=== PATIENT | male | born 1950 | race Caucasian/White ===

== ENCOUNTER → 2016-06-09 | Day surgery (SDC) | payer OTHER ==
[2016-06-06 08:48] VITALS: Ht 175.3 cm; Wt 84.1 kg
[~2016-06-09] VITALS: Ht 175.3 cm; Wt 84.1 kg
[~2016-06-09] MED LIST: AMIO200T4 PO; EpHEDrine SULFATE 50MG/5ML SYR ONE; HYDR25TA4 PO; LEVO112T4 PO; LIDOCAINE HCL 2% 2 ML VIAL (20MG/ML) ONE; LSNP/30 PO; METO100T7 PO; PROPOFOL IV EMULSION 10 MG/ML 20 ML VIAL IV ONE; SIMV20TA2 PO
[2016-06-09 13:30] VITALS: TEMP 37
--- NOTE | 2016-06-09 13:57 | Endo History and Physical ---
History & Physical Date of Service: Jun 09, 2016. Chief Complaint: history of polyps Referring Physician: no PCP assigned(patient unable to state) History of Present Illness For colonoscopy Past Surgical History Hx Cardiac Surgery: Yes (CARDIOVERSION AND CARDIAC ABLATION X2) Hx Internal Defibrillator: No Hx Pacemaker: No Hx Abdominal Surgery: No Hx of Implantable Prosthesis: No Hx Post-Op Nausea and Vomiting: No Hx Cancer Surgery: No Hx Thoracic Surgery: No Hx Orthopedic: No Hx Urinary Tract Surgery: No Family History None Social History Smoking Status: Never Smoker Hx Substance Use: No Hx Alcohol Use: No Allergies Coded Allergies: Tetanus Toxoid (Verified Allergy, Unknown, ALLERGY TO TETANUS HORSE SERUM , 06/09/16) Current Medications Reported Home Medications Medications Dose Route/Sig Max Daily Dose Days Date Category Cordarone (Amiodarone Hcl) 200 Mg Tab 0.5 Tab PO HS 06/06/16 Reported Hctz (Hydrochlorothiazide) 25 Mg Tab 25 Mg PO QAM 06/06/16 Reported Levothyroxine Sodium 112 Mcg Tab 1 Tab PO QAM 06/06/16 Reported Zestril (Lisinopril) 30 Mg Tab 30 Mg PO HS 06/06/16 Reported Toprol Xl (Metoprolol Succinate) 100 Mg Tab 0.5 Tab PO HS 10/29/11 Reported Zocor (Simvastatin) 20 Mg Tab 20 Mg PO HS 02/22/08 Reported Vital Signs Weight (Kilograms): 84.09 Height (Feet): 5 Height (Inches): 9 Date Time Temp Pulse Resp B/P Pulse Ox O2 Delivery O2 Flow Rate FiO2 06/09/16 13:30 37 68 20 127/79 96 Room Air Physical Exam General Appearance: WD/WN Respiratory/Chest: Respiratory effort: no dyspnea Cardiovascular: Heart Auscultation: RRR Abdomen: Inspection & Palpation: soft Assessment and Plan hx of polyps for colonoscopy
--- NOTE | 2016-06-09 14:15 | Discharge Instructions ---
Endoscopy Patient Instructions Date / Procedure(s) Performed Jun 09, 2016. Colonoscopy Allergy Information Coded Allergies: Tetanus Toxoid (Verified Allergy, Unknown, ALLERGY TO TETANUS HORSE SERUM , 06/09/16) Discharge Date / Findings Jun 09, 2016. polyps, hemorrhoids Medication Instructions Stopped Medication(s): stopped HCTZ,Zocor, and Levothyroxine on Thursday Restart Stopped Medication(s): resume meds Reported Home Medications Medications Dose Route/Sig Max Daily Dose Days Date Category Cordarone (Amiodarone Hcl) 200 Mg Tab 0.5 Tab PO HS 06/06/16 Reported Hctz (Hydrochlorothiazide) 25 Mg Tab 25 Mg PO QAM 06/06/16 Reported Levothyroxine Sodium 112 Mcg Tab 1 Tab PO QAM 06/06/16 Reported Zestril (Lisinopril) 30 Mg Tab 30 Mg PO HS 06/06/16 Reported Toprol Xl (Metoprolol Succinate) 100 Mg Tab 0.5 Tab PO HS 10/29/11 Reported Zocor (Simvastatin) 20 Mg Tab 20 Mg PO HS 02/22/08 Reported Provider Instructions Activity Restrictions - No exercising or heavy lifting for 24 hours. - Do not drink alcohol the day of the procedure. - Do not drive a car or operate machinery until the day after the procedure. - Do not make any important decisions or sign important papers in 24 hours after the procedure. Following Day: - Return to full activity which may include returning to work/school. Diet Start your diet with liquids and light foods (jello, soup, juice, toast). Then eat your usual diet if not nauseated. Treatment For Common After Affects For mild abdominal pain, bloating, or excessive gas: - Rest - Eat lightly - Lie on right side Follow-Up Information Follow-up with no PCP assigned(patient unable to state) as scheduled Anesthesia Information What You Should Know You have had a procedure that required some medicine to reduce anxiety and discomfort. This treatment is called moderate sedation. After receiving the treatment, you may be sleepy, but you will be able to breathe on your own. The effects of the treatment may last for several hours. Follow these instructions along with Activity/Diet recommendations noted above: * Do NOT do anything where dizziness or clumsiness would be dangerous. * Rest quietly at home today, then you can be up and about tomorrow. * Have a responsible person stay with you the rest of today. * You may have had an I.V. today. If so, you may take the dressing off later today. Recommendations Call your doctor if: * Trouble breathing * Continuous vomiting for more than 24 hours * Temperature above 101 degrees * Severe abdominal pain or bloating * Pain not relieved by pain medicine ordered * There is increased drainage or redness from any incision * A large amount of rectal bleeding greater than 2-3 tablespoons. (If you had a polyp/s removed or have hemorrhoids, a small amount of blood - from the rectum is to be expected.) * You have any unanswered questions or concerns. IN THE EVENT OF A SERIOUS EMERGENCY, GO TO THE NEAREST EMERGENCY ROOM Your discharge instructions were prepared by provider Lenny Echeverria. Patient Instructions Signature Page Jeremy Art Patient (or Guardian) Signature/Date: I have read and understand the instructions given to me by my caregivers. Caregiver/RN/Doctor Signature/Date: The above-named patient and/or guardian has received patient instructions on this date. + Original Patient Signature Page (only) stays with chart. Please make copy for patient.
--- NOTE | 2016-06-09 14:20 | GI REPORT ---
Procedure Date: 06/09/2016 1:20 PM Procedure: Colonoscopy Indications: Personal history of colonic polyps Medicines: Propofol total dose 230 mg IV, Lidocaine 40 mg IV, Ephedrine 10 mg IV Complications: No immediate complications. Estimated Blood Loss: Estimated blood loss was minimal. Procedure: Pre-Anesthesia Assessment: - Prior to the procedure, a History and Physical was performed, and patient medications, allergies and sensitivities were reviewed. The patient's tolerance of previous anesthesia was reviewed. - The risks and benefits of the procedure and the sedation options and risks were discussed with the patient. All questions were answered and informed consent was obtained. After I obtained informed consent, the scope was passed under direct vision. Throughout the procedure, the patient's blood pressure, pulse, and oxygen saturations were monitored continuously. The On-site loaner was introduced through the anus and advanced to the cecum, identified by appendiceal orifice and ileocecal valve. The colonoscopy was performed without difficulty. The patient tolerated the procedure well. The quality of the bowel preparation was excellent. Findings: Non-bleeding internal hemorrhoids were found during endoscopy. The hemorrhoids were mild. A 4 mm polyp was found in the descending colon. The polyp was sessile. The polyp was removed with a cold snare. Resection and retrieval were complete. Estimated blood loss was minimal. A 4 mm polyp was found in the rectum. The polyp was sessile. The polyp was removed with a cold snare. Resection and retrieval were complete. Estimated blood loss was minimal. Impression: - Non-bleeding internal hemorrhoids. - One 4 mm polyp in the descending colon, removed with a cold snare. Resected and retrieved. - One 4 mm polyp in the rectum, removed with a cold snare. Resected and retrieved. Recommendation: - Discharge patient to home (ambulatory). - Continue present medications. - Await pathology results. - Return to primary care physician APRILN. Lenny Echeverria M.D. Lenny Echeverria MD 06/09/2016 2:20:45 PM This report has been signed electronically. Note Initiated On: 06/09/2016 1:20 PM I attest to the content of the Intraoperative Record and orders documented therein, exceptions below
--- NOTE | 2016-06-09 14:22 | Anesthesiology Progress Note ---
Anesthesia Post Op Note Date & Time Jun 09, 2016 at 14:22 Vital Signs Pain Intensity: 0 Vital Signs Past 12 Hours Date Time Temp Pulse Resp B/P Pulse Ox O2 Delivery O2 Flow Rate FiO2 06/09/16 14:18 62 20 100/55 94 Room Air 06/09/16 13:30 37 68 20 127/79 96 Room Air Notes Mental Status: alert / awake / arousable, participated in evaluation Pt Amnestic to Procedure: Yes Nausea / Vomiting: adequately controlled Pain: adequately controlled Airway Patency, RR, SpO2: stable & adequate BP & HR: stable & adequate Hydration State: stable & adequate Anesthetic Complications: no major complications apparent Pt doing well.
[2016-06-09 14:38] VITALS: BP 115/75; PULSE 59; O2SAT 96
== END | disposition home or self-care (01) ==
LOC: C.GI 06-06 13:38
PROVIDERS: ATTEND Internal Medicine Gastroenterology
DX: Z86.010 Personal history of colon polyps (principal); D12.4 Benign neoplasm of descending colon; K62.1 Rectal polyp; K64.8 Other hemorrhoids; Z88.7 Allergy status to serum and vaccine